=== PATIENT | female | born 1940 | race Two or more races ===

== ENCOUNTER 2016-05-25 15:49 | Inpatient (IN) | payer MEDICARE, MEDICAID ==
[~2016-05-25] VITALS: Ht 160 cm; Wt 40.4 kg
[~2016-05-25 15:49] MED LIST: ACET-868 PO; CHOL10002 PO; CYAN10009 PO; DIVA125C PO; DOCU-25 PO; ESCI10TA PO; ESOM40CA PO; GABA100C PO; MAG30ORA PO; MAGN400O6 PO; MEMA10TA PO; MONT10TA22 PO; MULT1TAB11 PO; NA P133E RC
[2016-05-25] MEDS ORDERED: ACETAMINOPHEN 650 MG/SUPP.RECT RC ONE ×2 (16:00→16:15)
[2016-05-25] MEDS ORDERED: IV NS 0.9% 1,000 ML BAG IV ONE (16:00)
[2016-05-25] MEDS ORDERED: AMIN30LI4 PO (16:03)
[2016-05-25] MEDS ORDERED: PANT40TA4 PO (16:12)
[2016-05-25] MEDS ORDERED: IPRA3AMP IH (16:12)
[2016-05-25] MEDS ORDERED: CHOL100044 PEG (16:12)
[2016-05-25] MEDS ORDERED: IV NS 0.9% 1,000 ML ONE (16:15)
[2016-05-25] MEDS ORDERED: IV SET PRIMARY 1 EA INFUS.SET MC ONE ×2 (16:15→17:01)
[2016-05-25 16:16] LABS: BASOPHILS # (AUTO) 0.2 /CMM (0.0-0.2); BASOPHILS % (AUTO) 2.6 % (0.0-2.0); DIFF TOTAL % 100 %; HEMATOCRIT 44 % (33-45); HEMOGLOBIN 14.1 g/dL (11.5-14.8); KETONES,URINE Negative (NEGATIVE); LEUKOCYTE ESTERASE ,URINE Negative (NEGATIVE); LYMPHOCYTES # (AUTO) 0.4 /CMM (0.8-4.8); LYMPHOCYTES % (AUTO) 5.2 % (20.0-44.0); MEAN CORPUSCULAR HEMOGLOBIN 28 PG (26.0-33.0); MEAN CORPUSCULAR HGB CONC 33 g/dl (31.0-36.0); MEAN CORPUSCULAR VOLUME 87 fL (82-100); MONOCYTES # (AUTO) 0.9 /CMM (0.1-1.30); MONOCYTES % (AUTO) 12.4 % (2.0-12.0); NEUTROPHILS # (AUTO) 6.2 /CMM (1.8-8.9); NEUTROPHILS % (AUTO) 79.8 % (43.0-81.0); PLATELET COUNT (AUTO) 114 /CMM (150-450); RED BLOOD CELL COUNT(AUTO) 5.03 MIL/uL (4.0-5.2); WHITE BLOOD COUNT (AUTO) 7.7 K/uL (4.3-11.0)
[2016-05-25 16:17] LABS: ABG PCO2 30.3 mmHg (35.0-45.0); ABG PH 7.438 (7.350-7.450); ABG PO2 161.1 mmHg (75.0-100.0); ABG TOTAL HEMOGLOBIN 13.8 G/dL (12.0-16.0); AaDO2 377.5 mmHg; O2Hb 97.8 % (94.0-97.0)
[2016-05-25 16:17] LABS: ADD UA MICROSCOPIC YES
[2016-05-25 16:30] LABS: ANION GAP 18 (5-14); CALCIUM, SERUM 10.9 mg/dL (8.5-10.1); CARBON DIOXIDE 21 mmol/L (21-32); CHLORIDE 108 mmol/L (98-107); CREATININE 1.6 mg/dL (0.6-1.3); GLUCOSE 163 mg/dL (74-106); POTASSIUM 4.1 mmol/L (3.5-5.1); SODIUM SERUM 143 mmol/L (136-145); UREA NITROGEN, BLOOD 35 mg/dL (7-18)
[2016-05-25 16:35] LABS: INR 0.92 (0.87-1.13); PROTHROMBIN TIME 9.7 SECS (9.5-12.7)
[2016-05-25 16:37] LABS: ADD URINE CULTURE NO; RBC,URINE 0-2 /HPF (0-2); WBC,URINE 0-2 /HPF (0-3)
[2016-05-25 16:38] LABS: TROPONIN I < 0.017 ng/mL (0.00-0.056)
[2016-05-25 16:41] LABS: LACTIC ACID 5.8 mmol/L (0.4-2.0)
[2016-05-25 16:46] LABS: ALANINE AMINOTRANSFERASE 13 U/L (12-78); ALBUMIN 3.3 g/dL (3.4-5.0); ASPARTATE AMINOTRANSFERASE 11 U/L (15-37); BILIRUBIN,DIRECT 0.1 mg/dL (0.0-0.2); BILIRUBIN,TOTAL 0.3 mg/dL (0.2-1.0); INDIRECT BILIRUBIN 0.2 mg/dL (0.0-1.1); TOTAL PROTEIN, SERUM 7.8 g/dL (6.4-8.2)
[2016-05-25] MEDS ORDERED: IV NS 0.9% 500 ML BAG IV ONE (17:00)
[2016-05-25] MEDS ORDERED: IV NS 0.9% 500 ML IV ONE (17:01)
[2016-05-25 17:13] LABS: *LACTIC ACID REFLEX FLAG YES
[2016-05-25] MEDS ORDERED: IV SET PRIMARY PUMP SET 1 EA INFUS.SET MC ONE (17:23)
[2016-05-25] MEDS ORDERED: PIPERACILLIN /TAZOBACTAM 3.375 G in IV D5W 50 ML IV ONE (17:30)
[2016-05-25] MEDS ORDERED: IV NS 0.9% 250 ML IV ONE (17:49)
[2016-05-25] MEDS ORDERED: CT SWABBABLE VALVE TRANS SET 1 EA INFUS.SET MC ONE (17:49)
[2016-05-25] MEDS ORDERED: IOHEXOL 50 ML IV ONE (17:50)
[2016-05-25] MEDS ORDERED: LORAZEPAM INJ 2 MG/ML VIAL ONE (17:57)
[2016-05-25] MEDS ORDERED: LORAZEPAM INJ 2 MG/ML VIAL IV ONE (18:30)
[2016-05-25 20:00] VITALS: BP 107/74
[2016-05-25] MEDS ORDERED: HYDROCODONE/APAP 5/325MG 1 EACH TABLET PO PRN (20:00)
[2016-05-25] MEDS ORDERED: Z GUARD REMEDY 2 OZ OINT TP PRN (20:00)
[2016-05-25] MEDS ORDERED: MAGNESIUM HYDROXIDE 30 ML UDC PO PRN ×2 (20:00)
[2016-05-25] MEDS ORDERED: NA PHOS,M-B/NA PHOS,DI-BA 1 EA ENEMA RC PRN (20:00)
[2016-05-25] MEDS ORDERED: MAG HYDROX/AL HYDROX/SIMETH 30 ML UDC PO PRN (20:00)
[2016-05-25] MEDS ORDERED: IV NS 0.9% 1,000 ML BAG IV PRN (20:00)
[2016-05-25] MEDS ORDERED: ALBUTEROL FS 2.5 MG/3 ML VIAL.NEB NEB PRN (20:00)
[2016-05-25] MEDS ORDERED: ZOLPIDEM TARTRATE 5 MG TABLET PO PRN (20:00)
[2016-05-25] MEDS ORDERED: ACETAMINOPHEN 325 MG TABLET PO PRN (20:00)
[2016-05-25] MEDS ORDERED: ONDANSETRON HCL/PF 4 MG/2 ML VIAL IVP PRN (20:00)
[2016-05-25] MEDS ORDERED: IPRATROPIUM NEB FS 0.5 MG/2.5 ML AMPUL.NEB NEB PRN (20:00)
[2016-05-25 20:57] LABS: ALBUMIN 2.3 g/dL (3.4-5.0); BILIRUBIN,DIRECT 0.1 mg/dL (0.0-0.2); BILIRUBIN,TOTAL 0.4 mg/dL (0.2-1.0); INDIRECT BILIRUBIN 0.3 mg/dL (0.0-1.1); TOTAL PROTEIN, SERUM 5.9 g/dL (6.4-8.2)
[2016-05-25 21:03] LABS: LACTIC ACID 3.6 mmol/L (0.4-2.0)
[2016-05-25] MEDS: MONTELUKAST SODIUM (10MG) 10 MG TABLET PO SCH (22:00)
[2016-05-26] VITALS: BP 122/83
[2016-05-26] MEDS ORDERED: IV SET PRIMARY PUMP SET 1 EA INFUS.SET MC ONE (00:20)
[2016-05-26] MEDS ORDERED: IV NS 0.9% 1,000 ML ONE (00:20)
[2016-05-26] MEDS ORDERED: SECONDARY IV SET 1 EA INFUS.SET MC ONE ×2 (00:20→09:13)
[2016-05-26] MEDS ORDERED: IV D5W 100 ML IV ONE (00:32)
[2016-05-26] MEDS ORDERED: PIPERACILLIN /TAZOBACTAM 3.375 G VIAL IV ONE ×2 (00:32→02:22)
[2016-05-26] MEDS: PIPERACILLIN /TAZOBACTAM 3.375 G in IV D5W 50 ML IV SCH ×4 (00:44→18:22)
[2016-05-26 04:00] VITALS: BP 142/94
[2016-05-26 07:14] LABS: BASOPHILS % (AUTO) 0.2 % (0.0-2.0); DIFF TOTAL % 100 %; EOSINOPHILS % (AUTO) 0.3 % (0.0-6.0); HEMATOCRIT 36 % (33-45); HEMOGLOBIN 11.8 g/dL (11.5-14.8); LYMPHOCYTES # (AUTO) 0.6 /CMM (0.8-4.8); MEAN CORPUSCULAR HEMOGLOBIN 28 PG (26.0-33.0); MEAN CORPUSCULAR HGB CONC 33 g/dl (31.0-36.0); MEAN CORPUSCULAR VOLUME 86 fL (82-100); MONOCYTES # (AUTO) 0.8 /CMM (0.1-1.30); MONOCYTES % (AUTO) 15.6 % (2.0-12.0); NEUTROPHILS # (AUTO) 3.5 /CMM (1.8-8.9); NEUTROPHILS % (AUTO) 71.9 % (43.0-81.0); PLATELET COUNT (AUTO) 96 /CMM (150-450); RED BLOOD CELL COUNT(AUTO) 4.17 MIL/uL (4.0-5.2); WHITE BLOOD COUNT (AUTO) 4.9 K/uL (4.3-11.0)
[2016-05-26 07:32] LABS: CALCIUM, SERUM 9.8 mg/dL (8.5-10.1); CREATININE 1.1 mg/dL (0.6-1.3); PHOSPHORUS 3.5 mg/dL (2.5-4.9); POTASSIUM 4.8 mmol/L (3.5-5.1)
[2016-05-26 08:10] VITALS: BP 149/88
[2016-05-26] MEDS ORDERED: FEE PK DOSING 1 MIN EA MC ONE (08:40)
[2016-05-26 08:41] LABS: ANISOCYTOSIS 1+; BAND % (MANUAL) 4 % (0.0-5.0); LYMPHOCYTES % (MANUAL) 19 % (16-48); PLATELET ESTIMATE DECREASED
[2016-05-26] MEDS: PANTOPRAZOLE 40 MG TABLET.DR PO SCH (09:00)
[2016-05-26] MEDS: MULTIVIT, IRON, MIN NO. 8, FA 1 TAB TABLET PO SCH (09:00)
[2016-05-26] MEDS ORDERED: IV NS 0.9% 1,000 ML BAG IV SCH (09:00)
[2016-05-26] MEDS: PROSOURCE / PROSTAT (PYXIS) 30 ML UDC PO SCH (09:00)
[2016-05-26] MEDS: DOCUSATE SODIUM 100 MG CAPSULE PO SCH (09:00)
[2016-05-26] MEDS: CHOLECALCIFEROL 1,000 UNIT TABLET (VIT D3) PEG SCH (09:00)
[2016-05-26] MEDS: ESCITALOPRAM OXALATE (10 MG) 10 MG TABLET PO SCH (09:00)
[2016-05-26] MEDS: MEMANTINE HCL 5 MG TABLET PO SCH ×2 (09:00→17:00)
[2016-05-26] MEDS: DIVALPROEX SODIUM 125 MG CAP.SPRINK PO SCH ×2 (09:00→17:00)
[2016-05-26] MEDS: VANCOMYCIN 500 MG in IV D5W 100 ML IV SCH ×2 (09:15→20:40)
[2016-05-26 12:00] VITALS: BP 148/98
[2016-05-26] MEDS ORDERED: ACETAMINOPHEN 650 MG/SUPP.RECT RC PRN (12:00)
[2016-05-26 16:17] VITALS: BP 158/94
[2016-05-26] MEDS: IV NS 0.9% 1,000 ML IV PRN (16:26)
[2016-05-26] MEDS ORDERED: IV NS 0.9% 1,000 ML BAG IV PRN (16:30)
[2016-05-26 20:00] VITALS: BP 156/94
[2016-05-26] MEDS: MONTELUKAST SODIUM (10MG) 10 MG TABLET PO SCH (21:36)
[2016-05-27] MEDS: PIPERACILLIN /TAZOBACTAM 3.375 G in IV D5W 50 ML IV SCH ×4 (01:08→17:22)
[2016-05-27] MEDS: IV NS 0.9% 1,000 ML IV PRN (05:46)
[2016-05-27 06:35] LABS: BASOPHILS % (AUTO) 0.4 % (0.0-2.0); DIFF TOTAL % 100 %; EOSINOPHILS # (AUTO) 0.2 /CMM (0.0-0.7); EOSINOPHILS % (AUTO) 2.6 % (0.0-6.0); HEMATOCRIT 38 % (33-45); HEMOGLOBIN 12.3 g/dL (11.5-14.8); LYMPHOCYTES # (AUTO) 0.8 /CMM (0.8-4.8); LYMPHOCYTES % (AUTO) 12.5 % (20.0-44.0); MEAN CORPUSCULAR HEMOGLOBIN 28 PG (26.0-33.0); MEAN CORPUSCULAR HGB CONC 33 g/dl (31.0-36.0); MEAN CORPUSCULAR VOLUME 86 fL (82-100); MONOCYTES # (AUTO) 0.7 /CMM (0.1-1.30); MONOCYTES % (AUTO) 11.4 % (2.0-12.0); NEUTROPHILS # (AUTO) 4.6 /CMM (1.8-8.9); NEUTROPHILS % (AUTO) 73.1 % (43.0-81.0); PLATELET COUNT (AUTO) 97 /CMM (150-450); RED BLOOD CELL COUNT(AUTO) 4.38 MIL/uL (4.0-5.2); WHITE BLOOD COUNT (AUTO) 6.4 K/uL (4.3-11.0)
[2016-05-27 06:59] LABS: CALCIUM, SERUM 9.6 mg/dL (8.5-10.1); CREATININE 0.9 mg/dL (0.6-1.3); POTASSIUM 3.9 mmol/L (3.5-5.1)
[2016-05-27 08:56] VITALS: BP 158/93
[2016-05-27 09:12] LABS: LYMPHOCYTES % (MANUAL) 6 % (16-48); PLATELET ESTIMATE DECREASED; RBC MORPHOLOGY COMMENT NORMAL RBC MORPH
[2016-05-27] MEDS: VANCOMYCIN 500 MG in IV D5W 100 ML IV SCH ×2 (09:29→21:32)
[2016-05-27] MEDS: PROSOURCE / PROSTAT (PYXIS) 30 ML UDC PO SCH (10:07)
[2016-05-27] MEDS: CHOLECALCIFEROL 1,000 UNIT TABLET (VIT D3) PEG SCH (10:08)
[2016-05-27] MEDS: ESCITALOPRAM OXALATE (10 MG) 10 MG TABLET PO SCH (10:08)
[2016-05-27] MEDS: PANTOPRAZOLE 40 MG TABLET.DR PO SCH (10:08)
[2016-05-27] MEDS: DOCUSATE SODIUM 100 MG CAPSULE PO SCH (10:08)
[2016-05-27] MEDS: MULTIVIT, IRON, MIN NO. 8, FA 1 TAB TABLET PO SCH (10:08)
[2016-05-27] MEDS: DIVALPROEX SODIUM 125 MG CAP.SPRINK PO SCH ×2 (10:08→17:20)
[2016-05-27] MEDS: MEMANTINE HCL 5 MG TABLET PO SCH ×2 (10:08→17:20)
[2016-05-27 16:00] VITALS: BP 143/94
[2016-05-27] MEDS: LACTOBACILLUS RHAMNOSUS GG 1 EACH CAP.SPRINK PO SCH (17:20)
[2016-05-27 20:00] VITALS: BP 147/91
[2016-05-27] MEDS: MONTELUKAST SODIUM (10MG) 10 MG TABLET PO SCH (21:32)
[2016-05-28] MEDS: PIPERACILLIN /TAZOBACTAM 3.375 G in IV D5W 50 ML IV SCH ×5 (00:11→23:41)
[2016-05-28] MEDS: IV NS 0.9% 1,000 ML IV PRN ×2 (00:12→17:33)
[2016-05-28 06:51] LABS: CALCIUM, SERUM 9.5 mg/dL (8.5-10.1); CREATININE 0.8 mg/dL (0.6-1.3); POTASSIUM 3.6 mmol/L (3.5-5.1)
[2016-05-28 07:16] LABS: BASOPHILS % (AUTO) 0.4 % (0.0-2.0); DIFF TOTAL % 100 %; EOSINOPHILS # (AUTO) 0.4 /CMM (0.0-0.7); EOSINOPHILS % (AUTO) 5.7 % (0.0-6.0); HEMATOCRIT 38 % (33-45); HEMOGLOBIN 12.1 g/dL (11.5-14.8); LYMPHOCYTES # (AUTO) 0.8 /CMM (0.8-4.8); LYMPHOCYTES % (AUTO) 11.4 % (20.0-44.0); MEAN CORPUSCULAR HEMOGLOBIN 28 PG (26.0-33.0); MEAN CORPUSCULAR HGB CONC 32 g/dl (31.0-36.0); MEAN CORPUSCULAR VOLUME 86 fL (82-100); MONOCYTES # (AUTO) 0.7 /CMM (0.1-1.30); MONOCYTES % (AUTO) 9.9 % (2.0-12.0); NEUTROPHILS # (AUTO) 5.1 /CMM (1.8-8.9); NEUTROPHILS % (AUTO) 72.6 % (43.0-81.0); PLATELET COUNT (AUTO) 106 /CMM (150-450); RED BLOOD CELL COUNT(AUTO) 4.35 MIL/uL (4.0-5.2); WHITE BLOOD COUNT (AUTO) 7.1 K/uL (4.3-11.0)
[2016-05-28 08:00] VITALS: BP 136/95
[2016-05-28] MEDS: VANCOMYCIN 500 MG in IV D5W 100 ML IV SCH ×2 (08:27→20:49)
[2016-05-28] MEDS: PANTOPRAZOLE 40 MG TABLET.DR PO SCH (08:27)
[2016-05-28] MEDS: MEMANTINE HCL 5 MG TABLET PO SCH ×2 (08:28→17:17)
[2016-05-28] MEDS: DIVALPROEX SODIUM 125 MG CAP.SPRINK PO SCH ×2 (08:28→17:19)
[2016-05-28] MEDS: CHOLECALCIFEROL 1,000 UNIT TABLET (VIT D3) PEG SCH (08:28)
[2016-05-28] MEDS: MULTIVIT, IRON, MIN NO. 8, FA 1 TAB TABLET PO SCH (08:28)
[2016-05-28] MEDS: PROSOURCE / PROSTAT (PYXIS) 30 ML UDC PO SCH (08:28)
[2016-05-28] MEDS: DOCUSATE SODIUM 100 MG CAPSULE PO SCH (08:28)
[2016-05-28] MEDS: ESCITALOPRAM OXALATE (10 MG) 10 MG TABLET PO SCH (08:28)
[2016-05-28] MEDS: LACTOBACILLUS RHAMNOSUS GG 1 EACH CAP.SPRINK PO SCH ×2 (08:28→17:17)
[2016-05-28] MEDS ORDERED: SECONDARY IV SET 1 EA INFUS.SET MC ONE (08:36)
[2016-05-28 16:00] VITALS: BP 169/94
[2016-05-28 20:00] VITALS: BP 159/98
[2016-05-28] MEDS: MONTELUKAST SODIUM (10MG) 10 MG TABLET PO SCH (21:05)
[2016-05-29] MEDS: PIPERACILLIN /TAZOBACTAM 3.375 G in IV D5W 50 ML IV SCH ×3 (05:11→18:39)
[2016-05-29] MEDS ORDERED: diphenhydrAMINE HCL 50 MG/ML VIAL ONE (05:41)
[2016-05-29] MEDS ORDERED: diphenhydrAMINE HCL 50 MG/ML VIAL IV PRN (06:00)
[2016-05-29 07:21] LABS: BASOPHILS % (AUTO) 0.2 % (0.0-2.0); DIFF TOTAL % 100 %; EOSINOPHILS # (AUTO) 0.4 /CMM (0.0-0.7); EOSINOPHILS % (AUTO) 6.2 % (0.0-6.0); HEMATOCRIT 39 % (33-45); HEMOGLOBIN 12.4 g/dL (11.5-14.8); LYMPHOCYTES # (AUTO) 0.8 /CMM (0.8-4.8); LYMPHOCYTES % (AUTO) 12.5 % (20.0-44.0); MEAN CORPUSCULAR HEMOGLOBIN 28 PG (26.0-33.0); MEAN CORPUSCULAR HGB CONC 32 g/dl (31.0-36.0); MEAN CORPUSCULAR VOLUME 87 fL (82-100); MONOCYTES # (AUTO) 0.6 /CMM (0.1-1.30); MONOCYTES % (AUTO) 10.4 % (2.0-12.0); NEUTROPHILS # (AUTO) 4.3 /CMM (1.8-8.9); NEUTROPHILS % (AUTO) 70.7 % (43.0-81.0); PLATELET COUNT (AUTO) 106 /CMM (150-450); RED BLOOD CELL COUNT(AUTO) 4.48 MIL/uL (4.0-5.2); WHITE BLOOD COUNT (AUTO) 6.1 K/uL (4.3-11.0)
[2016-05-29 07:46] LABS: CALCIUM, SERUM 9.4 mg/dL (8.5-10.1); CREATININE 0.8 mg/dL (0.6-1.3); POTASSIUM 3.2 mmol/L (3.5-5.1)
[2016-05-29 08:00] VITALS: BP 158/109
[2016-05-29] MEDS: CHOLECALCIFEROL 1,000 UNIT TABLET (VIT D3) PEG SCH (09:44)
[2016-05-29] MEDS: MULTIVIT, IRON, MIN NO. 8, FA 1 TAB TABLET PO SCH (09:44)
[2016-05-29] MEDS: MEMANTINE HCL 5 MG TABLET PO SCH ×2 (09:44→16:33)
[2016-05-29] MEDS: DIVALPROEX SODIUM 125 MG CAP.SPRINK PO SCH ×2 (09:44→16:33)
[2016-05-29] MEDS: PANTOPRAZOLE 40 MG TABLET.DR PO SCH (09:44)
[2016-05-29] MEDS: ESCITALOPRAM OXALATE (10 MG) 10 MG TABLET PO SCH (09:44)
[2016-05-29] MEDS: VANCOMYCIN 500 MG in IV D5W 100 ML IV SCH ×2 (09:45→22:11)
[2016-05-29] MEDS: PROSOURCE / PROSTAT (PYXIS) 30 ML UDC PO SCH (09:45)
[2016-05-29] MEDS: LACTOBACILLUS RHAMNOSUS GG 1 EACH CAP.SPRINK PO SCH ×2 (09:45→16:33)
[2016-05-29] MEDS: DOCUSATE SODIUM 100 MG CAPSULE PO SCH (09:45)
[2016-05-29] MEDS ORDERED: POTASSIUM CHLORIDE 20 MEQ TAB.PRT.SR PO ONE (11:30)
[2016-05-29 16:00] VITALS: BP 154/100
[2016-05-29 20:00] VITALS: BP 128/84
[2016-05-29] MEDS: MONTELUKAST SODIUM (10MG) 10 MG TABLET PO SCH (22:11)
[2016-05-30] MEDS ORDERED: diphenhydrAMINE HCL 50 MG/ML VIAL ONE (01:09)
[2016-05-30] MEDS: PIPERACILLIN /TAZOBACTAM 3.375 G in IV D5W 50 ML IV SCH ×2 (01:21→05:55)
[2016-05-30] MEDS ORDERED: diphenhydrAMINE HCL 50 MG/ML VIAL IV ONE (01:30)
[2016-05-30] MEDS: IV NS 0.9% 1,000 ML IV PRN ×2 (05:55→19:25)
[2016-05-30 06:34] LABS: BASOPHILS % (AUTO) 0.3 % (0.0-2.0); DIFF TOTAL % 100 %; EOSINOPHILS # (AUTO) 0.4 /CMM (0.0-0.7); HEMATOCRIT 33 % (33-45); HEMOGLOBIN 11.1 g/dL (11.5-14.8); LYMPHOCYTES # (AUTO) 0.8 /CMM (0.8-4.8); LYMPHOCYTES % (AUTO) 14.9 % (20.0-44.0); MEAN CORPUSCULAR HEMOGLOBIN 28 PG (26.0-33.0); MEAN CORPUSCULAR HGB CONC 33 g/dl (31.0-36.0); MEAN CORPUSCULAR VOLUME 85 fL (82-100); MONOCYTES # (AUTO) 0.6 /CMM (0.1-1.30); MONOCYTES % (AUTO) 11.4 % (2.0-12.0); NEUTROPHILS # (AUTO) 3.4 /CMM (1.8-8.9); NEUTROPHILS % (AUTO) 65.4 % (43.0-81.0); PLATELET COUNT (AUTO) 124 /CMM (150-450); RED BLOOD CELL COUNT(AUTO) 3.94 MIL/uL (4.0-5.2); WHITE BLOOD COUNT (AUTO) 5.2 K/uL (4.3-11.0)
[2016-05-30 06:46] LABS: CREATININE 0.8 mg/dL (0.6-1.3); POTASSIUM 3.5 mmol/L (3.5-5.1)
[2016-05-30 08:00] VITALS: BP 129/73
[2016-05-30] MEDS: CHOLECALCIFEROL 1,000 UNIT TABLET (VIT D3) PEG SCH (09:02)
[2016-05-30] MEDS: LACTOBACILLUS RHAMNOSUS GG 1 EACH CAP.SPRINK PO SCH ×2 (09:02→17:34)
[2016-05-30] MEDS: PANTOPRAZOLE 40 MG TABLET.DR PO SCH (09:02)
[2016-05-30] MEDS: PROSOURCE / PROSTAT (PYXIS) 30 ML UDC PO SCH (09:02)
[2016-05-30] MEDS: DOCUSATE SODIUM 100 MG CAPSULE PO SCH (09:02)
[2016-05-30] MEDS: MULTIVIT, IRON, MIN NO. 8, FA 1 TAB TABLET PO SCH (09:02)
[2016-05-30] MEDS: ESCITALOPRAM OXALATE (10 MG) 10 MG TABLET PO SCH (09:02)
[2016-05-30] MEDS: MEMANTINE HCL 5 MG TABLET PO SCH ×2 (09:03→17:34)
[2016-05-30] MEDS: LISINOPRIL (10MG) 10 MG TABLET PO SCH (09:03)
[2016-05-30] MEDS: DIVALPROEX SODIUM 125 MG CAP.SPRINK PO SCH ×2 (09:03→17:34)
[2016-05-30] MEDS ORDERED: diphenhydrAMINE HCL 25 MG CAPSULE PO PRN (10:00)
[2016-05-30] MEDS: VANCOMYCIN 500 MG in IV D5W 100 ML IV SCH ×2 (10:04→20:57)
[2016-05-30 16:00] VITALS: BP 154/102
[2016-05-30 20:00] VITALS: BP 139/69
[2016-05-30] MEDS: FAMOTIDINE (20 MG) 20 MG TABLET PO SCH (21:09)
[2016-05-30] MEDS: MONTELUKAST SODIUM (10MG) 10 MG TABLET PO SCH (21:09)
[2016-05-31] MEDS ORDERED: POLYVINYL ALCOHOL 15 ML BOTTLE EACHEYE PRN (07:30)
[2016-05-31 07:39] LABS: BASOPHILS % (AUTO) 0.3 % (0.0-2.0); DIFF TOTAL % 100 %; EOSINOPHILS # (AUTO) 0.4 /CMM (0.0-0.7); HEMATOCRIT 36 % (33-45); LYMPHOCYTES # (AUTO) 0.8 /CMM (0.8-4.8); MEAN CORPUSCULAR HEMOGLOBIN 28 PG (26.0-33.0); MEAN CORPUSCULAR HGB CONC 33 g/dl (31.0-36.0); MEAN CORPUSCULAR VOLUME 85 fL (82-100); MONOCYTES # (AUTO) 0.6 /CMM (0.1-1.30); MONOCYTES % (AUTO) 11.4 % (2.0-12.0); NEUTROPHILS # (AUTO) 3.5 /CMM (1.8-8.9); NEUTROPHILS % (AUTO) 66.3 % (43.0-81.0); PLATELET COUNT (AUTO) 150 /CMM (150-450); RED BLOOD CELL COUNT(AUTO) 4.28 MIL/uL (4.0-5.2); WHITE BLOOD COUNT (AUTO) 5.3 K/uL (4.3-11.0)
[2016-05-31 08:00] VITALS: BP 158/99
[2016-05-31 08:20] LABS: CALCIUM, SERUM 9.5 mg/dL (8.5-10.1); CREATININE 0.7 mg/dL (0.6-1.3); POTASSIUM 3.2 mmol/L (3.5-5.1)
[2016-05-31] MEDS: MEMANTINE HCL 5 MG TABLET PO SCH (08:34)
[2016-05-31 08:36] VITALS: BP 158/99
[2016-05-31] MEDS: LISINOPRIL (10MG) 10 MG TABLET PO SCH (08:36)
[2016-05-31] MEDS: DIVALPROEX SODIUM 125 MG CAP.SPRINK PO SCH (08:37)
[2016-05-31] MEDS: MULTIVIT, IRON, MIN NO. 8, FA 1 TAB TABLET PO SCH (08:37)
[2016-05-31] MEDS: FAMOTIDINE (20 MG) 20 MG TABLET PO SCH (08:37)
[2016-05-31] MEDS: DOCUSATE SODIUM 100 MG CAPSULE PO SCH (08:38)
[2016-05-31] MEDS: LACTOBACILLUS RHAMNOSUS GG 1 EACH CAP.SPRINK PO SCH (08:38)
[2016-05-31] MEDS: CHOLECALCIFEROL 1,000 UNIT TABLET (VIT D3) PEG SCH (08:38)
[2016-05-31] MEDS: ESCITALOPRAM OXALATE (10 MG) 10 MG TABLET PO SCH (08:38)
[2016-05-31] MEDS: PANTOPRAZOLE 40 MG TABLET.DR PO SCH (08:38)
[2016-05-31] MEDS: PROSOURCE / PROSTAT (PYXIS) 30 ML UDC PO SCH (08:39)
[2016-05-31] MEDS ORDERED: SECONDARY IV SET 1 EA INFUS.SET MC ONE (09:18)
[2016-05-31] MEDS: VANCOMYCIN 500 MG in IV D5W 100 ML IV SCH (09:28)
[2016-05-31] MEDS ORDERED: POTASSIUM CHLORIDE 20 MEQ TAB.PRT.SR PO SCH (11:30)
== END 2016-05-31 13:27 | DRG 865 ==
LOC: ER 15:52 → TELE 18:23 → MED 05-26 14:46
PROVIDERS: ADMIT Family Medicine
DX: B34.9 Viral infection, unspecified (principal); G93.41 Metabolic encephalopathy; N17.0 Acute kidney failure with tubular necrosis; E87.2 Acidosis; R65.10 Systemic inflammatory response syndrome (SIRS) of non-infectious origin without acute organ dysfunction; I12.9 Hypertensive chronic kidney disease with stage 1 through stage 4 chronic kidney disease, or unspecified chronic kidney disease; N18.9 Chronic kidney disease, unspecified; J44.9 Chronic obstructive pulmonary disease, unspecified; G30.9 Alzheimer's disease, unspecified; F02.80 Dementia in other diseases classified elsewhere, unspecified severity, without behavioral disturbance, psychotic disturbance, mood disturbance, and anxiety; G58.9 Mononeuropathy, unspecified; K21.9 Gastro-esophageal reflux disease without esophagitis; F31.9 Bipolar disorder, unspecified; G62.9 Polyneuropathy, unspecified; D69.6 Thrombocytopenia, unspecified; E87.6 Hypokalemia; D72.1 Eosinophilia
CPT/HCPCS: 36415; 36600; 70450-TC; 71010-TC; 80048-TC; 80061-TC; 80076-TC; 80202-TC; 81000-TC; 83605-TC; 83735-TC; 83880; 84100-TC; 84484-TC; 85025-TC; 85730-TC; 87040-TC; 87081-TC; 87400; 92526; 92611-TC; 94799-TC; 97003-TC; A4606; J1200; J2060; J2543; J3370; J7030; J7040; J7050; J7060; Q0163; Q9967; Z7610

== ENCOUNTER 2017-07-09 11:55 | Inpatient (IN) | payer MEDICARE, MEDICAID ==
[~2017-07-09] VITALS: Ht 154.9 cm; Wt 43.5 kg
[~2017-07-09 11:55] MED LIST changes: +AMIN30LI4 PO; -CHOL10002 PO; +CHOL100044 PO; -CYAN10009 PO; -DIVA125C PO; +DIVA125C2 PO; +DOCU-141 PO; -DOCU-25 PO; -ESOM40CA PO; -GABA100C PO; +IPRA3AMP23 IH; -MAG30ORA PO; +PANT40TA4 PO
--- NOTE | 2017-07-09 12:05 | NUR ---
[id number] FROM [facility]: HYPOXIA, VOMITED x 1 TIME TODAY. RESP IS EVEN AND UNLABORED WITH NAD NOTED. HOT TO TOUCH. FEBRILE 99.8 ORAL TEMP. ASSISTED TO HOSPITAL GOWN. PLACED ON THE MONITOR. DR ZACARIAS AT FOR EVAL.
[2017-07-09] MEDS ORDERED: ACETAMINOPHEN 650 MG/SUPP.RECT RC ONE ×2 (12:30→12:34)
[2017-07-09] MEDS ORDERED: IV NS 0.9% 1,000 ML BAG IV ONE (12:30)
[2017-07-09] MEDS ORDERED: PIPERACILLIN /TAZOBACTAM 3.375 G in IV D5W 50 ML IV ONE (12:30)
--- NOTE | 2017-07-09 12:30 | NUR ---
CHANGED THE DIAPER AND REPLACED THE BEDSHEET.
[2017-07-09 12:38] LABS: BASOPHILS # (AUTO) 0.1 /CMM (0.0-0.2); BASOPHILS % (AUTO) 1.3 % (0.0-2.0); EOSINOPHILS % (AUTO) 0.4 % (0.0-6.0); HEMATOCRIT 42 % (33-45); HEMOGLOBIN 13.8 g/dL (11.5-14.8); LYMPHOCYTES # (AUTO) 0.4 /CMM (0.8-4.8); LYMPHOCYTES % (AUTO) 6.9 % (20.0-44.0); MEAN CORPUSCULAR HGB CONC 33 g/dl (31.0-36.0); MEAN CORPUSCULAR VOLUME 87 fL (82-100); MONOCYTES # (AUTO) 0.1 /CMM (0.1-1.30); MONOCYTES % (AUTO) 1.6 % (2.0-12.0); NEUTROPHILS % (AUTO) 89.8 % (43.0-81.0); PLATELET COUNT (AUTO) 106 /CMM (150-450); RDW COEFFICIENT OF VARIATION 14.7 (11.5-15.0); RED BLOOD CELL COUNT(AUTO) 4.77 MIL/uL (4.0-5.2); WHITE BLOOD COUNT (AUTO) 5.6 K/uL (4.3-11.0)
[2017-07-09 12:50] LABS: INR 0.88 (0.85-1.15)
[2017-07-09 13:07] LABS: APPEARANCE,URINE SL CLOUDY (CLEAR); BILIRUBIN,URINE NEGATIVE (NEGATIVE); BLOOD, URINE TRACE Ery/uL (NEGATIVE); COLOR,URINE YELLOW (YELLOW); KETONES,URINE NEGATIVE (NEGATIVE); LEUKOCYTE ESTERASE ,URINE 1+ (NEGATIVE); NITRITE, URINE NEGATIVE (NEGATIVE); PROTEIN,URINE NEGATIVE (NEGATIVE); UGLUCOSE NEGATIVE (NEGATIVE); UROBILINOGEN,URINE 0.2 EU/dL (0.2)
[2017-07-09 13:10] LABS: CARBON DIOXIDE 23 mmol/L (21-32); CHLORIDE 109 mmol/L (98-107); CREATININE 1.3 mg/dL (0.6-1.3); GLUCOSE 169 mg/dL (74-106); POTASSIUM 4.5 mmol/L (3.5-5.1); SODIUM SERUM 141 mmol/L (136-145); UREA NITROGEN, BLOOD 25 mg/dL (7-18)
[2017-07-09 13:16] LABS: ALANINE AMINOTRANSFERASE 28 U/L (12-78); ALBUMIN 3.7 g/dL (3.4-5.0); ALKALINE PHOSPHATASE 114 U/L (46-116); ASPARTATE AMINOTRANSFERASE 18 U/L (15-37); BILIRUBIN,DIRECT 0.1 mg/dL (0.0-0.2); BILIRUBIN,TOTAL 0.3 mg/dL (0.2-1.0); TOTAL PROTEIN, SERUM 7.6 g/dL (6.4-8.2)
[2017-07-09 13:18] LABS: TROPONIN I < 0.017 ng/mL (0.00-0.056)
--- NOTE | 2017-07-09 13:53 | NUR ---
TELE 304-1
[2017-07-09 13:57] LABS: BACTERIA,URINE 2+ /HPF (None Seen); RBC,URINE 0-2 /HPF (0-2); SQUAMOUS EPITHELIAL CELL,UR Rare /HPF (None Seen)
[2017-07-09] MEDS ORDERED: DEXT15DR6 EACHEYE (14:21)
[2017-07-09] MEDS ORDERED: MAG30ORA PO (14:21)
[2017-07-09] MEDS ORDERED: ESCI10TA PO (14:21)
[2017-07-09] MEDS ORDERED: FOLI0.4T2 PO (14:21)
[2017-07-09] MEDS ORDERED: RANI150T8 PO (14:21)
--- NOTE | 2017-07-09 14:25 | NUR ---
Patient is resting comfortably in bed with eyes closed. Easily aroused. VSS
--- NOTE | 2017-07-09 15:20 | NUR ---
REPORT GIVEN TO HOPE VAZQUEZ AT BS. PATIENT WENT TO TELE [phone]
--- NOTE | 2017-07-09 15:45 | NUR ---
MS RN NOTES ADMITTED PATIENT NON VERBAL, BLINKS EYES. NO ACUTE DISTRESS NOTED. BREATHING UNLABORED WITH O2 VIA NC. IV ACCESS PATENT AND INTACT. ESPINOZA CATHETER INTACT. HOB ELEVATED. SAFETY MEASURES IN PLACE. PHOTOS TAKEN. WILL CONTINUE TO MONITOR ACCORDINGLY.
[2017-07-09] MEDS ORDERED: MAGNESIUM HYDROXIDE 30 ML UDC PO PRN (17:30)
[2017-07-09] MEDS ORDERED: ONDANSETRON HCL/PF 4 MG/2 ML VIAL IVP PRN (17:30)
[2017-07-09] MEDS ORDERED: ACETAMINOPHEN 325 MG TABLET PO PRN (17:30)
[2017-07-09] MEDS ORDERED: MAG HYDROX/AL HYDROX/SIMETH 30 ML UDC PO PRN (17:30)
[2017-07-09] MEDS ORDERED: HYDROCODONE/APAP 5/325MG 1 EACH TABLET PO PRN (17:30)
[2017-07-09] MEDS ORDERED: ZOLPIDEM TARTRATE 5 MG TABLET PO PRN (17:30)
[2017-07-09] MEDS ORDERED: Z GUARD REMEDY 2 OZ OINT TP PRN (17:30)
--- NOTE | 2017-07-09 19:00 | NUR ---
RN NOTES ROCEPHIN IV NOT YET AVAILABLE, WILL ENDORSE TO NIGHT NURSE FOR ADMINISTRATION.
[2017-07-09] MEDS: IV NS 0.9% 1,000 ML IV PRN (19:02)
--- NOTE | 2017-07-09 19:05 | NUR ---
MS RN NOTES PATIENT IN BED NON VERBAL, BLINKS EYES. NO ACUTE DISTRESS NOTED. BREATHING UNLABORED WITH O2 VIA NC. IV ACCESS PATENT AND INTACT. KEPT COMFORTABLE. HOB ELEVATED. SAFETY MEASURES IN PLACE. ENDORSED TO NIGHT NURSE FOR CONTINUITY OF CARE.
[2017-07-09] MEDS: CEFTRIAXONE 1 G in IV D5W 50 ML IV SCH (19:30)
[2017-07-09 20:00] VITALS: BP_SYST 123; BP_SYST 140; BP_DIAS 66; BP_DIAS 79
--- NOTE | 2017-07-09 20:00 | NUR ---
RN NOTES PATIENT IS AWAKE, NON-VERBAL, ON 2LPM VIA NC, SATURATION IS 96%, NOT IN APPARENT PAIN, NO RESTLESSNESS, NO FACIAL GRIMACING, ABDOMEN SOFT AND NON-TENDER, RIGHT ARM PERIPHERAL LINE IS PATENT AND INFUSING WELL, STARTED ON ROCEPHIN, NOTED RIGHT ARM DISCOLORATION, PROTECTED ARM WITH CHELSEY SLEEVE. ESPINOZA CATHETER IS DRAINING WELL, OF YELLOW URINE, KEPT SAFE AND COMFORTABLE, CALL LIGHT WITHIN REACH.
--- NOTE | 2017-07-09 20:21 | NUR ---
RN NOTES NOTIFIED DR. RIVERA OF PLATELET OF 106, PER MD CONTINUE HEPARIN. ALSO NOTIFIED OF HEART RATE OF OVER 100 BPM AT TIMES GOING TO 120s, PER MD, NO NEW ORDER, CONTINUE MONITORING
[2017-07-09] MEDS: HEPARIN SODIUM, PORCINE 5000 UNITS/1 ML VIAL SQ SCH (20:58)
[2017-07-09 22:00] VITALS: BP 140/66
[2017-07-10] VITALS: BP 127/74
[2017-07-10 00:22] VITALS: BP 127/74
[2017-07-10 04:00] VITALS: BP 125/75
[2017-07-10 06:08] LABS: CALCIUM, SERUM 8.8 mg/dL (8.5-10.1); CARBON DIOXIDE 20 mmol/L (21-32); CHLORIDE 115 mmol/L (98-107); CREATININE 1.1 mg/dL (0.6-1.3); GLUCOSE 83 mg/dL (74-106); MAGNESIUM 1.9 mg/dL (1.8-2.4); PHOSPHORUS 2.3 mg/dL (2.5-4.9); POTASSIUM 4.4 mmol/L (3.5-5.1); SODIUM SERUM 144 mmol/L (136-145); UREA NITROGEN, BLOOD 20 mg/dL (7-18)
[2017-07-10 06:21] LABS: BASOPHILS % (AUTO) 0.2 % (0.0-2.0); HEMATOCRIT 32 % (33-45); HEMOGLOBIN 10.8 g/dL (11.5-14.8); LYMPHOCYTES % (AUTO) 10.8 % (20.0-44.0); MEAN CORPUSCULAR HGB CONC 34 g/dl (31.0-36.0); MEAN CORPUSCULAR VOLUME 88 fL (82-100); MONOCYTES # (AUTO) 0.5 /CMM (0.1-1.30); MONOCYTES % (AUTO) 5.3 % (2.0-12.0); NEUTROPHILS % (AUTO) 83.7 % (43.0-81.0); PLATELET COUNT (AUTO) 84 /CMM (150-450); RDW COEFFICIENT OF VARIATION 15.5 (11.5-15.0); RED BLOOD CELL COUNT(AUTO) 3.63 MIL/uL (4.0-5.2); WHITE BLOOD COUNT (AUTO) 9.6 K/uL (4.3-11.0)
[2017-07-10 06:22] LABS: CHOLESTEROL 122 mg/dL (<200); HDL CHOLESTEROL 51 mg/dL (40-60); LDL 61 mg/dL (0-99); THYROID STIMULATING HORMONE 1.056 uIU/mL (0.358-3.74); TRIGLYCERIDES 31 mg/dL (30-150)
--- NOTE | 2017-07-10 06:30 | NUR ---
RN NOTES PATIENT IS OBTUNDED, OPENS EYES AT TIMES, TOLERATING 2LPM VIA NC, NO DISTRESS, NO ACUTE CHANGE DURING SHIFT, ESPINOZA CATHETER DRAINING WELL, KEPT SAFE AND COMFORTABLE, CALL LIGHT WITHIN REACH.
[2017-07-10 08:00] VITALS: BP 114/68
--- NOTE | 2017-07-10 08:11 | NUR ---
MS RN RECEIVED ON BED, AWAKE,NON VERBAL, NOT IN DISTRESS, RESPIRATIONS EVEN AND UNLABORED,NO SOB NOTED, LUNGS ARE DIMINISHED,ABDOMEN SOFT,POSITIVE BOWEL SOUNDS, DENIES PAIN AT THIS TIME, WILL MONITOR PATIENT'S CONDITION.
[2017-07-10] MEDS ORDERED: MEMANTINE HCL 5 MG TABLET PO SCH (09:00)
--- NOTE | 2017-07-10 09:00 | NUR ---
MS ARNETT BREAKFAST SERVED,DUE MEDS GIVEN,TOLERATED WELL. WILL MONITOR PATIENT'S CONDITION.
[2017-07-10 09:31] LABS: BAND % (MANUAL) 3 % (0.0-5.0); LYMPHOCYTES % (MANUAL) 7 % (16-48); MONOCYTES % (MANUAL) 3 % (0-11.0); NEUTROPHILS % (MANUAL) 87 (42-76)
[2017-07-10] MEDS: PANTOPRAZOLE 40 MG TABLET.DR PO SCH (09:40)
[2017-07-10] MEDS: HEPARIN SODIUM, PORCINE 5000 UNITS/1 ML VIAL SQ SCH ×2 (09:41→21:19)
--- NOTE | 2017-07-10 10:00 | NUR ---
MS RN WAS SEEN BY PT, DID BED EXERCISE ONLY, NO DISTRESS NOTED.
[2017-07-10 16:00] VITALS: BP 131/78
[2017-07-10] MEDS ORDERED: K PHOS NEUTRAL 250 MG TABLET PO ONE (17:00)
[2017-07-10] MEDS ORDERED: NA PHOS,M-B/NA PHOS,DI-BA 1 EA ENEMA RC PRN (17:30)
[2017-07-10] MEDS ORDERED: ALBUTEROL FS 2.5 MG/3 ML VIAL.NEB NEB PRN (17:30)
[2017-07-10] MEDS ORDERED: IPRATROPIUM NEB FS 0.5 MG/2.5 ML AMPUL.NEB NEB PRN (17:30)
[2017-07-10] MEDS: CEFTRIAXONE 1 G in IV D5W 50 ML IV SCH (17:31)
--- NOTE | 2017-07-10 18:11 | NUR ---
MS RN ON BED, NO CHANGE OF CONDITION,ALL NEEDS ATTENDED.
[2017-07-10] MEDS: MEMANTINE HCL 5 MG TABLET PO SCH (18:36)
[2017-07-10] MEDS: IV NS 0.9% 1,000 ML IV PRN (18:37)
[2017-07-10] MEDS ORDERED: POLYVINYL ALCOHOL 15 ML BOTTLE EACHEYE PRN (19:00)
--- NOTE | 2017-07-10 19:00 | NUR ---
MS RN NOTES RECEIVE PT IN BED OBTUNDED OPENS EYES , NO S/S OF DISTRESS, STABLE, SAFETY MEASURES IN PLACE, CALL LIGHT WITHIN REACH, WILL CONTINUE TO MONITOR
[2017-07-10] MEDS ORDERED: Medication Not On Formulary EA (Ipratropium/Albuterol Sulfate (Duoneb 2.5-0.5 Mg/3 Ml So IH SCH (19:30)
[2017-07-10 20:00] VITALS: BP 123/83
[2017-07-10] MEDS: IPRATROPIUM NEB FS 0.5 MG/2.5 ML AMPUL.NEB NEB SCH (20:21)
[2017-07-10] MEDS: ALBUTEROL FS 2.5 MG/0.5 ML VIAL.NEB NEB SCH (20:21)
[2017-07-10] MEDS: MONTELUKAST SODIUM (10MG) 10 MG TABLET PO SCH (21:21)
[2017-07-11] MEDS: ALBUTEROL FS 2.5 MG/0.5 ML VIAL.NEB NEB SCH ×4 (00:47→20:12)
[2017-07-11] MEDS: IPRATROPIUM NEB FS 0.5 MG/2.5 ML AMPUL.NEB NEB SCH ×4 (00:47→20:12)
--- NOTE | 2017-07-11 06:24 | NUR ---
MS RN NOTES PT IN BED ASLEEP AND EASILY AWAKEN, NOT IN DISTRESS, AM CARE PROVIDED. ON 2LPM VIA NC 02 SAT 96%. STABLE CONDITION. NO ACUTE CHANGES THROUGHOUT THE SHIFT. KEPT CLEAN AND DRY AND COMFORT. NURSING CARE RENDERED. NEEDS ATTENDED AND ANTICIPATED. ASSISTED REPOSITION EVERY 2 HOURS. GOOD SKIN CARE PROVIDED. ON LOW BED TO ENSURE SAFETY, CALL LIGHT WITHIN REACH, WILL ENDORSE TO THE NEXT SHIFT CONTINUE PLAN OF CARE
[2017-07-11] MEDS ORDERED: PANTOPRAZOLE 40 MG TABLET.DR PO SCH (07:30)
--- NOTE | 2017-07-11 07:30 | NUR ---
RN NOTES PATIENT A/OX1, BREATHING EVEN AND UNLABORED, NO SOB NOTED, NO S/SX OF PAIN OR DISCOMFORT,PIV PATENT AND FLUSHES WELL, NEEDS ATTENDED AND MET, CALL LIGHT WITHIN REACH, WILL CONTINUE TO MONITOR.
[2017-07-11 07:38] LABS: CALCIUM, SERUM 9.1 mg/dL (8.5-10.1); CARBON DIOXIDE 23 mmol/L (21-32); CHLORIDE 115 mmol/L (98-107); GLUCOSE 83 mg/dL (74-106); PHOSPHORUS 3.1 mg/dL (2.5-4.9); SODIUM SERUM 145 mmol/L (136-145); UREA NITROGEN, BLOOD 18 mg/dL (7-18)
[2017-07-11 07:55] VITALS: BP 133/79
[2017-07-11] MEDS: FOLIC ACID 1 MG TABLET PO SCH (08:47)
[2017-07-11] MEDS: DIVALPROEX SODIUM 125 MG CAP.SPRINK PO SCH (08:47)
[2017-07-11] MEDS: MEMANTINE HCL 5 MG TABLET PO SCH ×2 (08:47→16:49)
[2017-07-11] MEDS: PANTOPRAZOLE 40 MG TABLET.DR PO SCH (08:47)
[2017-07-11] MEDS: DOCUSATE SODIUM 100 MG CAPSULE PO SCH (08:47)
[2017-07-11] MEDS: ESCITALOPRAM OXALATE (10 MG) 10 MG TABLET PO SCH (08:48)
[2017-07-11] MEDS: HEPARIN SODIUM, PORCINE 5000 UNITS/1 ML VIAL SQ SCH ×2 (08:51→20:35)
[2017-07-11] MEDS: IV NS 0.9% 1,000 ML IV PRN (10:07)
--- NOTE | 2017-07-11 10:54 | NUR ---
WOUND CARE CONSULT: PT PRESENTS WITH FECAL INCONTINENCE, BRUISING TO ARMS AND CURRENT THEA SCORE OF 11. ALL SKIN PROTECTION MEASURES IN PLACE AND DISCUSSED WITH NURSING STAFF. [facility] BE [facility]ACED. WILL SEE PRN. YEPEZ IN AGREEMENT WITH PLAN OF CARE. Addendum: 07/11/17 at 1056 by GRAHAM RASCON WNDNU Amended: Links added.
[2017-07-11 15:06] LABS: APPEARANCE,URINE CLEAR (CLEAR); BILIRUBIN,URINE NEGATIVE (NEGATIVE); BLOOD, URINE 2+ Ery/uL (NEGATIVE); COLOR,URINE YELLOW (YELLOW); KETONES,URINE NEGATIVE (NEGATIVE); LEUKOCYTE ESTERASE ,URINE TRACE (NEGATIVE); NITRITE, URINE NEGATIVE (NEGATIVE); PROTEIN,URINE 1+ mg/dl (NEGATIVE); UGLUCOSE NEGATIVE (NEGATIVE); UROBILINOGEN,URINE 0.2 EU/dL (0.2)
[2017-07-11 15:29] LABS: BACTERIA,URINE Few /HPF (None Seen)
[2017-07-11 15:30] LABS: MUCUS,URINE Moderate /LPF (None Seen); SQUAMOUS EPITHELIAL CELL,UR Moderate /HPF (None Seen)
[2017-07-11 16:24] VITALS: BP 109/66
[2017-07-11] MEDS: CEFTRIAXONE 1 G in IV D5W 50 ML IV SCH (17:08)
--- NOTE | 2017-07-11 18:56 | NUR ---
RN NOTES PATIENT A/OX1, NON-VERBAL, BREATHING EVEN AND UNLABORED, ON O2 AT 2LPM VIA NC TO KEEP O2 SAT > 92%, NO SOB NOTED, PATIENT IS IN NO DISTRESS, NO SIGNIFICANT CHANGE THROUGHOUT THE SHIFT, NO S/SX OF PAIN AT THIS TIME, PATIENT TURNED AND REPOSITIONED EVERY 2 HOURS, SKIN CARE RENDERED, F/C PATENT AND DRAINING, UA SAMPLE SENT TO LAB, PATIENT TOLERATING CURRENT DIET, CONTINUE IVF ON RIGHT HAND, ALL NEEDS ATTENDED AND MET, CALL LIGHT WITHIN REACH, WILL ENDORSE TO SHELLFISH BED WORKER FOR [facility].
--- NOTE | 2017-07-11 19:05 | NUR ---
MS RN NOTES RECEIVE PT IN BED OBTUNDED OPENS EYES, ON 2LPM VIA NC 02 SAT 97%. NO S/S OF DISTRESS, STABLE, SAFETY MEASURES IN PLACE, CALL LIGHT WITHIN REACH, WILL CONTINUE TO MONITOR
[2017-07-11 19:51] VITALS: BP 122/70
[2017-07-11 20:00] VITALS: BP 122/70
[2017-07-11] MEDS: MONTELUKAST SODIUM (10MG) 10 MG TABLET PO SCH (21:02)
[2017-07-12] MEDS: ALBUTEROL FS 2.5 MG/0.5 ML VIAL.NEB NEB SCH ×2 (01:23→08:24)
[2017-07-12] MEDS: IPRATROPIUM NEB FS 0.5 MG/2.5 ML AMPUL.NEB NEB SCH ×2 (01:23→08:24)
[2017-07-12] MEDS: IV NS 0.9% 1,000 ML IV PRN (02:12)
--- NOTE | 2017-07-12 06:19 | NUR ---
RN CLOSING NOTES PT ASLEEP AND EASILY AWAKEN, NON VERBAL OPENS EYES, ON 2LPM VIA NC 02 SAT 97% RESPIRATIONS EVEN AND UNLABORED. NOT IN DISTRESS, STABLE CONDITION, NO ACUTE CHANGES THROUGHOUT THE SHIFT. KEPT CLEAN AND DRY AND COMFORT. NURSING CARE RENDERED. NEEDS ATTENDED AND ANTICIPATED. ASSISTED REPOSITION EVERY 2 HOURS. GOOD SKIN CARE PROVIDED. ON LOW BED TO ENSURE SAFETY, CALL LIGHT WITHIN REACH, WILL ENDORSE TO THE NEXT SHIFT CONTINUE PLAN OF CARE
--- NOTE | 2017-07-12 07:47 | NUR ---
MS/RN OPENING NOTE PATIENT IN BED IN STABLE CONDITION. NON VERBAL, OPEN EYES. NO SIGNS OF ACUTE DISTRESS. NO COMPLAIN OF PAIN OR DISCOMFORT. ALL NEEDS ATTENDED TO. CALL LIGHT WITHIN REACH. WILL CONTINUE TO MONITOR TO ENSURE SAFETY.
[2017-07-12 08:00] VITALS: BP 157/88
[2017-07-12] MEDS: HEPARIN SODIUM, PORCINE 5000 UNITS/1 ML VIAL SQ SCH (08:03)
--- NOTE | 2017-07-12 08:03 | NUR ---
MS/RN HEPARIN HELD 9AM HEPARIN NOT GIVEN DUE TO LOW PLATELETS 84 ON 07/10/17. NOTIFIED.
[2017-07-12] MEDS: DOCUSATE SODIUM 100 MG CAPSULE PO SCH (08:18)
[2017-07-12] MEDS: DIVALPROEX SODIUM 125 MG CAP.SPRINK PO SCH (08:18)
[2017-07-12] MEDS: ESCITALOPRAM OXALATE (10 MG) 10 MG TABLET PO SCH (08:18)
[2017-07-12] MEDS: FOLIC ACID 1 MG TABLET PO SCH (08:18)
[2017-07-12] MEDS: PANTOPRAZOLE 40 MG TABLET.DR PO SCH (08:18)
[2017-07-12] MEDS: MEMANTINE HCL 5 MG TABLET PO SCH (08:18)
--- NOTE | 2017-07-12 12:55 | NUR ---
MS/MACHINE SWEEPER BRUSH MAKER PATIENT DISCHARGE TO [facility] IN STABLE CONDITION. A/O X 1. NO SIGNS OF ACUTE DISTRESS. NO COMPLAIN OF PAIN OR DISCOMFORT. DISCHARGE INSTRUCTIONS AND TEACHINGS PROVIDED, UNABLE TO COMPREHEND. REPORT GIVEN TO SRINI ARNETT FROM [facility]. ALL NEEDS ATTENDED TO. NAME BAND, IV LINE AND ESPINOZA CATHETER REMOVED. PATIENT VOIDED. LEFT VIA GURNEY ACCOMPANIED BY 2 GUNSTOCK REPAIRER IN STABLE CONDITION.
== END 2017-07-12 12:45 | DRG 689 ==
LOC: ER 11:56 → TELE 14:22 → MED 07-10 09:39
PROVIDERS: ADMIT Hospitalist; ATTEND Hospitalist
DX: N39.0 Urinary tract infection, site not specified (principal); G93.41 Metabolic encephalopathy; N17.9 Acute kidney failure, unspecified; D64.9 Anemia, unspecified; B95.4 Other streptococcus as the cause of diseases classified elsewhere; G30.9 Alzheimer's disease, unspecified; F02.80 Dementia in other diseases classified elsewhere, unspecified severity, without behavioral disturbance, psychotic disturbance, mood disturbance, and anxiety; I10 Essential (primary) hypertension; K21.9 Gastro-esophageal reflux disease without esophagitis; F41.9 Anxiety disorder, unspecified; M81.0 Age-related osteoporosis without current pathological fracture; F32.9 Major depressive disorder, single episode, unspecified; J44.9 Chronic obstructive pulmonary disease, unspecified
CPT/HCPCS: 36415; 71045-TC; 80048-TC; 80061-TC; 80076-TC; 81000-TC; 83605-TC; 83735-TC; 84100-TC; 84443-TC; 84484-TC; 85025-TC; 85730-TC; 87040-TC; 87081-TC; 87086-TC; 87186-TC; 94799-TC; A4606; J0696; J1644; J2543; J7030; J7040; J7060; Z7610

== ENCOUNTER 2017-12-30 14:14 | Emergency (ER) | payer MEDICARE, MEDICAID ==
[~2017-12-30] VITALS: Ht 154.9 cm; Wt 40.8 kg
[~2017-12-30 14:14] MED LIST changes: -AMIN30LI4 PO; +DEXT15DR6 EACHEYE; +FOLI0.4T2 PO; +MAG30ORA PO; -PANT40TA4 PO; +RANI150T8 PO
--- NOTE | 2017-12-30 14:20 | NUR ---
PT BIB PRIVATE EMT WHO CAME IN DUE TO LEFT ARM ABSCESS. PATIENT IS ALERT AND ORINETED X2. ON ROOM AIR AND TOLERATED WELL. KEPT PATIENT COMFORTABLE. WILL CONTINUE TO MONITOR ACCORDINGLY.
--- NOTE | 2017-12-30 14:25 | NUR ---
DR. BLOOD AT BEDSIDE FOR EVAL.
[2017-12-30] MEDS ORDERED: LIDOCAINE 1% INJ 50 ML MDV IJ ONE (15:32)
--- NOTE | 2017-12-30 16:16 | NUR ---
CALLED CHERYL MOBLEY [phone] TRIP #[phone]
[2017-12-30] MEDS: LIDOCAINE 1%-EPI 1:100,000 50 ML VIAL IJ ONE (16:21)
[2017-12-30 17:46] VITALS: BP 112/70
== END 2017-12-30 17:47 ==
LOC: ER 14:17
DX: L02.414 Cutaneous abscess of left upper limb (principal); G30.9 Alzheimer's disease, unspecified; F02.80 Dementia in other diseases classified elsewhere, unspecified severity, without behavioral disturbance, psychotic disturbance, mood disturbance, and anxiety; G58.9 Mononeuropathy, unspecified; I10 Essential (primary) hypertension; J44.9 Chronic obstructive pulmonary disease, unspecified
CPT/HCPCS: 10060; 99283; A4606; A6403; A6407; J3490; Z7610